=== PATIENT | male | born 1940 | race Caucasian/White ===

== ENCOUNTER 2021-04-10 06:14 | Day surgery (SDC) | payer OTHER ==
[2021-04-05 12:36] LABS: BASOPHILS % (AUTO) 0.4 % (0.0-5.0); EOSINOPHILS % (AUTO) 2.2 % (0.0-8.0); HEMATOCRIT 40.3 % (42-54); LYMPHOCYTES % (AUTO) 26.3 % (21.0-51.0); MEAN CORPUSCULAR HEMOGLOBIN 31.2 pg (27.0-33.0); MEAN CORPUSCULAR HGB CONC 32.3 g/dL (32.0-36.0); MEAN CORPUSCULAR VOLUME 96.6 fL (79-99); MONOCYTES % (AUTO) 9.9 % (3.0-13.0); NEUTROPHILS % (AUTO) 60.8 % (40.0-77.0); PLATELET COUNT (AUTO) 152 K/uL (130-400); RED BLOOD CELL COUNT(AUTO) 4.17 MIL/uL (4.50-6.20); RED CELL DISTRIBUTION WIDTH 13.2 % (11.0-15.5); WHITE BLOOD COUNT (AUTO) 5.1 K/uL (4.8-10.8)
[2021-04-05 12:47] LABS: INR 1.02 (0.85-1.15); PROTHROMBIN TIME 11.1 SEC (9.6-11.6)
[2021-04-05 12:48] LABS: PARTIAL THROMBOPLASTIN TIME 26.2 SEC (26.3-35.5)
[2021-04-05 12:49] LABS: ALBUMIN 3.7 g/dL (3.5-5.0); BILIRUBIN,TOTAL 0.5 mg/dL (0.2-1.0); POTASSIUM 5.2 mmol/L (3.5-5.1); TOTAL PROTEIN, SERUM 7.5 g/dL (6.0-8.3)
[2021-04-09 14:59] VITALS: BP 153/71
[2021-04-10] VITALS (15 sets, daily range): BP systolic 102–142; BP diastolic 53–70
[~2021-04-10] VITALS: Ht 177.8 cm; Wt 85.5 kg
[~2021-04-10 06:14] MED LIST: AEC81 PO; ASCO500C18 PO; CARV12.511 PO; CITA-108 PO; CYAN1TAB44 PO; LISI10TA24 PO; LORA10TA7 PO; MAGN400C PO; MONT-39 PO; MULT-1367 PO; SIMV-43 PO; TAMS-1 PO; ZOLP10TA2 PO
[2021-04-10] MEDS ORDERED: LACTATED RINGERS 1000ML 1,000 ML IV ONE (06:37)
[2021-04-10] MEDS ORDERED: SUCCINYLCHOLINE 200MG/10ML SYR ONE (10:16)
[2021-04-10] MEDS ORDERED: LIDOCAINE PF 100MG/5ML (2%) SYRINGE 5ML ONE (10:16)
[2021-04-10] MEDS ORDERED: ROCURONIUM 10MG/1ML SYR 10 MG/ML ML ONE (10:17)
[2021-04-10] MEDS ORDERED: MIDAZOLAM HCL 1 MG/ML 2ML VIAL ONE (10:17)
[2021-04-10] MEDS ORDERED: FENTANYL CITRATE PF 50 MCG/1 ML 2ML VIAL ONE (10:17)
[2021-04-10] MEDS ORDERED: PROPOFOL 10 MG/ML 20ML VIAL IV ONE (10:17)
[2021-04-10] MEDS ORDERED: EPHEDRINE SULFATE 50 MG/ML AMPULE ONE (10:31)
[2021-04-10] MEDS ORDERED: CEFAZOLIN SODIUM 1 GM VIAL ONE (10:38)
[2021-04-10] MEDS ORDERED: NEOSTIGMINE 5MG/5ML SYR IV ONE (11:04)
[2021-04-10] MEDS ORDERED: GLYCOPYRROLATE 1 MG/5 ML SYRINGE ONE (11:04)
== END 2021-04-10 12:55 | disposition home or self-care (01) ==
LOC: DAH 06:14
PROVIDERS: ATTEND Urology Pediatric Urology
DX: N35.919 Unspecified urethral stricture, male, unspecified site (principal); Z20.822 Contact with and (suspected) exposure to COVID-19; N32.0 Bladder-neck obstruction; N21.0 Calculus in bladder; I10 Essential (primary) hypertension; E78.5 Hyperlipidemia, unspecified; I44.0 Atrioventricular block, first degree; Z87.891 Personal history of nicotine dependence; Z90.89 Acquired absence of other organs; Z85.46 Personal history of malignant neoplasm of prostate; Z92.3 Personal history of irradiation; Z79.01 Long term (current) use of anticoagulants; Z88.1 Allergy status to other antibiotic agents; Z90.49 Acquired absence of other specified parts of digestive tract; Z98.890 Other specified postprocedural states
CPT/HCPCS: 36415 ×2; 52276; 71045; 80053; 84132; 85025; 85610; 85730; 87088; 87635; 93005; A4215; A4221; A4222; A4354; A4358; A4600; A4663; A6260; C1758 ×3; C1769; C9803; J0330; J0690; J2001; J2250; J2704; J2710; J3010; J3490 ×2; J7120

== ENCOUNTER 2022-12-09 12:42 | Inpatient (IN) | payer MEDICARE, OTHER ==
[~2022-12-09] VITALS: Ht 177.8 cm; Wt 85.3 kg
[2022-12-09 13:30] VITALS: BP 147/60; PULSE 56; RESP 22
[2022-12-09] MEDS ORDERED: NITROGLYCERIN 0.4 MG SL TAB SL PRN (13:30)
[2022-12-09] MEDS ORDERED: CLOPIDOGREL 300MG TAB PO ONE (13:30)
[2022-12-09] MEDS ORDERED: PHARMACY COMMUNICATION MISC SCH (13:30)
[2022-12-09 13:48] LABS: MEAN CORPUSCULAR HEMOGLOBIN 31.9 pg (27.0-33.0); MEAN CORPUSCULAR HGB CONC 33.7 g/dL (32.0-36.0); MEAN CORPUSCULAR VOLUME 94.8 fL (79-99); RED BLOOD CELL COUNT(AUTO) 4.01 MIL/uL (4.50-6.20); RED CELL DISTRIBUTION WIDTH 13.2 % (11.0-15.5); WHITE BLOOD COUNT (AUTO) 4.8 K/uL (4.8-10.8)
[2022-12-09] MEDS ORDERED: ASPIRIN 325MG EC TAB PO ONE (14:00)
[2022-12-09 14:24] LABS: INR 0.94 (0.85-1.15); PROTHROMBIN TIME 10.9 SEC (9.6-11.6)
[2022-12-09 14:25] LABS: ALBUMIN 3.4 g/dL (3.5-5.0); BILIRUBIN,TOTAL 0.5 mg/dL (0.2-1.0); MAGNESIUM 1.8 mg/dL (1.80-2.40); PARTIAL THROMBOPLASTIN TIME 25.4 SEC (26.3-35.5); POTASSIUM 3.5 mmol/L (3.5-5.1); T4 (THYROXINE) 5.4 ug/dL (4.7-13.3); THYROID STIMULATING HORMONE 3.43 uIU/mL (0.36-3.74); TOTAL PROTEIN, SERUM 6.9 g/dL (6.0-8.3)
[2022-12-09] MEDS: LISINOPRIL 20 MG TABLET PO SCH (14:30)
[2022-12-09] MEDS ORDERED: LORA5SOL62 PO (14:37)
[2022-12-09] MEDS ORDERED: MULT-1203 PO (14:37)
[2022-12-09] MEDS ORDERED: ASPI-1005 PO (14:37)
[2022-12-09] MEDS ORDERED: SIMV-43 PO (14:37)
[2022-12-09] MEDS ORDERED: LISI20TA24 PO (14:37)
[2022-12-09] MEDS ORDERED: CARV12.580 PO (14:37)
[2022-12-09] MEDS ORDERED: ZOLP10TA2 PO (14:37)
[2022-12-09] MEDS ORDERED: CITA-108 PO (14:37)
[2022-12-09] MEDS ORDERED: MONT-39 PO (14:37)
[2022-12-09 16:00] VITALS: BP 148/77; PULSE 52; RESP 20
[2022-12-09 16:43] VITALS: O2SAT 95
[2022-12-09 19:00] VITALS: BP 145/68; PULSE 56; RESP 20
[2022-12-09 20:00] VITALS: O2SAT 94
[2022-12-09] MEDS: SIMVASTATIN 20 MG TABLET PO SCH (21:00)
[2022-12-09] MEDS: MONTELUKAST SODIUM 10 MG TAB PO SCH (21:00)
[2022-12-10] VITALS (9 sets, daily range): BP systolic 132–151; BP diastolic 59–81; PULSE 52–72; RESP 18–20; O2SAT 96
[2022-12-10 04:40] LABS: BASOPHILS # (AUTO) 0.01 K/uL (0.00-0.20); BASOPHILS % (AUTO) 0.1 % (0.0-5.0); EOSINOPHILS # (AUTO) 0.17 K/uL (0.00-0.70); EOSINOPHILS % (AUTO) 2.4 % (0.0-8.0); HEMATOCRIT 35.1 % (42-54); IMMATURE GRANULOCYTE ABSOLUTE 0.01 K/uL (0-1); LYMPHOCYTES % (AUTO) 28.4 % (21.0-51.0); MEAN CORPUSCULAR HEMOGLOBIN 31.2 pg (27.0-33.0); MEAN CORPUSCULAR HGB CONC 34.2 g/dL (32.0-36.0); MEAN CORPUSCULAR VOLUME 91.2 fL (79-99); MONOCYTES # (AUTO) 0.7 K/uL (0.1-1.0); NEUTROPHILS # (AUTO) 4.1 K/uL (1.8-7.7); PLATELET COUNT (AUTO) 140 K/uL (130-400); RED BLOOD CELL COUNT(AUTO) 3.85 MIL/uL (4.50-6.20); RED CELL DISTRIBUTION WIDTH 13.2 % (11.0-15.5)
[2022-12-10 04:52] LABS: POTASSIUM 3.8 mmol/L (3.5-5.1)
[2022-12-10 06:35] LABS: SARS-CoV-2, RNA, NAAT NEGATIVE SARS CoV-2 (NEGATIVE)
[2022-12-10] MEDS: CLOPIDOGREL 75MG TAB PO SCH (08:36)
[2022-12-10] MEDS: LISINOPRIL 20 MG TABLET PO SCH (08:36)
[2022-12-10] MEDS: ASPIRIN 81 MG EC TAB PO SCH (08:37)
[2022-12-10] MEDS: PANTOPRAZOLE 40 MG TAB DR PO SCH (08:37)
[2022-12-10] MEDS: LORATADINE 10 MG TABLET PO SCH (08:37)
[2022-12-10] MEDS: CITALOPRAM 20 MG TABLET PO SCH (08:37)
[2022-12-10] MEDS ORDERED: [UNRECOGNIZED DRUG - REMARK] PO SCH (09:00)
[2022-12-10] MEDS ORDERED: CITALOPRAM HYDROBROMIDE 40 MG PO SCH (09:00)
[2022-12-10] MEDS: SIMVASTATIN 20 MG TABLET PO SCH (20:47)
[2022-12-10] MEDS: MONTELUKAST SODIUM 10 MG TAB PO SCH (20:47)
[2022-12-10] MEDS: CARVEDILOL 12.5 MG TABLET PO SCH (20:51)
[2022-12-11] VITALS (17 sets, daily range): BP systolic 107–183; BP diastolic 52–88; PULSE 51–62; RESP 18–20; O2SAT 96
[2022-12-11] MEDS: CLOPIDOGREL 75MG TAB PO SCH (09:00)
[2022-12-11] MEDS: LISINOPRIL 20 MG TABLET PO SCH (09:00)
[2022-12-11] MEDS: PANTOPRAZOLE 40 MG TAB DR PO SCH (09:00)
[2022-12-11] MEDS: CITALOPRAM 20 MG TABLET PO SCH (09:00)
[2022-12-11] MEDS: CARVEDILOL 12.5 MG TABLET PO SCH ×2 (09:00→21:00)
[2022-12-11] MEDS: LORATADINE 10 MG TABLET PO SCH (09:00)
[2022-12-11] MEDS: ASPIRIN 81 MG EC TAB PO SCH (09:06)
[2022-12-11] MEDS ORDERED: SODIUM BICARB 50MEQ 50ML VIAL 50 ML ONE (12:04)
[2022-12-11] MEDS ORDERED: BIVALIRUDIN 250 MG/VIAL IV ONE (12:04)
[2022-12-11] MEDS ORDERED: HEPARIN 10,000 UNIT/10ML (1,000 UNIT/ML) VIAL ONE (12:04)
[2022-12-11] MEDS ORDERED: LIDOCAINE HCL 400MG/20ML VIAL ONE (12:04)
[2022-12-11] MEDS ORDERED: NITROGLYCERIN 50MG VIAL ONE (12:05)
[2022-12-11] MEDS ORDERED: FENTANYL CITRATE PF 50 MCG/1 ML 2ML VIAL ONE (12:17)
[2022-12-11] MEDS ORDERED: MIDAZOLAM HCL 1 MG/ML 2ML VIAL ONE (12:19)
[2022-12-11] MEDS ORDERED: IOHEXOL-350 50ML VIAL IV ONE (13:20)
[2022-12-11] MEDS ORDERED: ISOVUE-370 50ML VIAL IV ONE (13:58)
[2022-12-11] MEDS ORDERED: IOPAMIDOL-370 100 ML VIAL IV ONE (13:58)
[2022-12-11] MEDS: 0.9%NACL 1000ML 1,000 ML IV SCH ×2 (14:00→20:40)
[2022-12-11] MEDS: MONTELUKAST SODIUM 10 MG TAB PO SCH (22:23)
[2022-12-11] MEDS: SIMVASTATIN 20 MG TABLET PO SCH (22:23)
[2022-12-12] VITALS (7 sets, daily range): BP systolic 150–169; BP diastolic 77–86; PULSE 56–65; RESP 16–18; O2SAT 97
[2022-12-12] MEDS: 0.9%NACL 1000ML 1,000 ML IV SCH ×2 (01:16→10:00)
[2022-12-12 04:09] LABS: POTASSIUM 3.7 mmol/L (3.5-5.1)
[2022-12-12] MEDS: CARVEDILOL 12.5 MG TABLET PO SCH ×2 (09:00→20:20)
[2022-12-12] MEDS: CITALOPRAM 20 MG TABLET PO SCH (11:22)
[2022-12-12] MEDS: LORATADINE 10 MG TABLET PO SCH (11:22)
[2022-12-12] MEDS: PANTOPRAZOLE 40 MG TAB DR PO SCH (11:22)
[2022-12-12] MEDS: CLOPIDOGREL 75MG TAB PO SCH (11:23)
[2022-12-12] MEDS: LISINOPRIL 20 MG TABLET PO SCH (11:23)
[2022-12-12] MEDS: ASPIRIN 81 MG EC TAB PO SCH (11:23)
[2022-12-12] MEDS: SIMVASTATIN 20 MG TABLET PO SCH (20:20)
[2022-12-12] MEDS: MONTELUKAST SODIUM 10 MG TAB PO SCH (20:20)
[2022-12-13] VITALS (9 sets, daily range): BP systolic 110–161; BP diastolic 58–84; PULSE 54–66; RESP 16–20; O2SAT 97–98
[2022-12-13] MEDS: ASPIRIN 81 MG EC TAB PO SCH (08:03)
[2022-12-13] MEDS: LISINOPRIL 20 MG TABLET PO SCH (08:03)
[2022-12-13] MEDS: CITALOPRAM 20 MG TABLET PO SCH (08:04)
[2022-12-13] MEDS: PANTOPRAZOLE 40 MG TAB DR PO SCH (08:05)
[2022-12-13] MEDS: CLOPIDOGREL 75MG TAB PO SCH (08:05)
[2022-12-13] MEDS: LORATADINE 10 MG TABLET PO SCH (08:05)
[2022-12-13] MEDS: CARVEDILOL 12.5 MG TABLET PO SCH (08:06)
[2022-12-13] MEDS: MONTELUKAST SODIUM 10 MG TAB PO SCH (20:51)
[2022-12-13] MEDS: SIMVASTATIN 20 MG TABLET PO SCH (20:51)
[2022-12-14] VITALS: BP 134/71; PULSE 52; RESP 18
[2022-12-14] MEDS: ASPIRIN 81 MG EC TAB PO SCH (09:00)
[2022-12-14] MEDS: PANTOPRAZOLE 40 MG TAB DR PO SCH (09:00)
[2022-12-14] MEDS: LORATADINE 10 MG TABLET PO SCH (09:00)
[2022-12-14] MEDS: CITALOPRAM 20 MG TABLET PO SCH (09:00)
[2022-12-14] MEDS: LISINOPRIL 20 MG TABLET PO SCH (09:00)
[2022-12-14] MEDS: ENOXAPARIN SODIUM 40 MG/0.4 ML SYRINGE SQ SCH (09:00)
[2022-12-14] MEDS: CLOPIDOGREL 75MG TAB PO SCH (09:00)
[2022-12-14 20:00] VITALS: O2SAT 97
[2022-12-14] MEDS: MONTELUKAST SODIUM 10 MG TAB PO SCH (21:00)
[2022-12-14] MEDS: SIMVASTATIN 20 MG TABLET PO SCH (21:00)
[2022-12-14] MEDS: CARVEDILOL 12.5 MG TABLET PO SCH (21:00)
[2022-12-15] VITALS (7 sets, daily range): BP systolic 125–150; BP diastolic 65–83; PULSE 50–63; RESP 16–18; O2SAT 97–98
[2022-12-15 00:35] LABS: PHOSPHORUS 3.5 mg/dL (2.5-4.9); POTASSIUM 3.8 mmol/L (3.5-5.1)
[2022-12-15 03:54] LABS: BASOPHILS # (AUTO) 0.02 K/uL (0.00-0.20); BASOPHILS % (AUTO) 0.4 % (0.0-5.0); EOSINOPHILS # (AUTO) 0.17 K/uL (0.00-0.70); EOSINOPHILS % (AUTO) 3.1 % (0.0-8.0); HEMATOCRIT 35.4 % (42-54); IMMATURE GRANULOCYTE ABSOLUTE 0.01 K/uL (0-1); LYMPHOCYTES # (AUTO) 2.1 K/uL (1.0-4.8); LYMPHOCYTES % (AUTO) 38.4 % (21.0-51.0); MEAN CORPUSCULAR HEMOGLOBIN 31.8 pg (27.0-33.0); MEAN CORPUSCULAR HGB CONC 34.2 g/dL (32.0-36.0); MEAN CORPUSCULAR VOLUME 93.2 fL (79-99); MONOCYTES # (AUTO) 0.6 K/uL (0.1-1.0); MONOCYTES % (AUTO) 10.2 % (3.0-13.0); NEUTROPHILS # (AUTO) 2.6 K/uL (1.8-7.7); NEUTROPHILS % (AUTO) 47.7 % (40.0-77.0); PLATELET COUNT (AUTO) 149 K/uL (130-400); RED CELL DISTRIBUTION WIDTH 13.4 % (11.0-15.5); WHITE BLOOD COUNT (AUTO) 5.5 K/uL (4.8-10.8)
[2022-12-15 04:03] LABS: POTASSIUM 3.7 mmol/L (3.5-5.1)
[2022-12-15 04:23] LABS: BASOPHILS # (AUTO) 0.02 K/uL (0.00-0.20); BASOPHILS % (AUTO) 0.4 % (0.0-5.0); EOSINOPHILS # (AUTO) 0.18 K/uL (0.00-0.70); EOSINOPHILS % (AUTO) 3.4 % (0.0-8.0); HEMATOCRIT 36.2 % (42-54); IMMATURE GRANULOCYTE ABSOLUTE 0.01 K/uL (0-1); LYMPHOCYTES % (AUTO) 37.6 % (21.0-51.0); MEAN CORPUSCULAR HEMOGLOBIN 31.4 pg (27.0-33.0); MEAN CORPUSCULAR HGB CONC 33.7 g/dL (32.0-36.0); MEAN CORPUSCULAR VOLUME 93.3 fL (79-99); MONOCYTES # (AUTO) 0.7 K/uL (0.1-1.0); MONOCYTES % (AUTO) 12.1 % (3.0-13.0); NEUTROPHILS # (AUTO) 2.5 K/uL (1.8-7.7); NEUTROPHILS % (AUTO) 46.3 % (40.0-77.0); PLATELET COUNT (AUTO) 138 K/uL (130-400); RED BLOOD CELL COUNT(AUTO) 3.88 MIL/uL (4.50-6.20); RED CELL DISTRIBUTION WIDTH 13.3 % (11.0-15.5); WHITE BLOOD COUNT (AUTO) 5.4 K/uL (4.8-10.8)
[2022-12-15] MEDS: ASPIRIN 81 MG EC TAB PO SCH (08:58)
[2022-12-15] MEDS: PANTOPRAZOLE 40 MG TAB DR PO SCH (08:58)
[2022-12-15] MEDS: ENOXAPARIN SODIUM 40 MG/0.4 ML SYRINGE SQ SCH (08:58)
[2022-12-15] MEDS: CITALOPRAM 20 MG TABLET PO SCH (08:58)
[2022-12-15] MEDS: CARVEDILOL 12.5 MG TABLET PO SCH ×2 (08:59→20:09)
[2022-12-15] MEDS: LORATADINE 10 MG TABLET PO SCH (08:59)
[2022-12-15] MEDS: LISINOPRIL 20 MG TABLET PO SCH (08:59)
[2022-12-15] MEDS: CLOPIDOGREL 75MG TAB PO SCH (08:59)
[2022-12-15] MEDS: MONTELUKAST SODIUM 10 MG TAB PO SCH (20:08)
[2022-12-15] MEDS: SIMVASTATIN 20 MG TABLET PO SCH (20:09)
[2022-12-16] VITALS (43 sets, daily range): BP systolic 93–172; BP diastolic 29–85; PULSE 50–88; RESP 10–24; O2SAT 93–97
[2022-12-16 04:06] LABS: BASOPHILS # (AUTO) 0.02 K/uL (0.00-0.20); BASOPHILS % (AUTO) 0.3 % (0.0-5.0); EOSINOPHILS # (AUTO) 0.22 K/uL (0.00-0.70); EOSINOPHILS % (AUTO) 3.7 % (0.0-8.0); HEMATOCRIT 34.2 % (42-54); IMMATURE GRANULOCYTE ABSOLUTE 0.02 K/uL (0-1); LYMPHOCYTES # (AUTO) 1.9 K/uL (1.0-4.8); LYMPHOCYTES % (AUTO) 30.7 % (21.0-51.0); MEAN CORPUSCULAR HEMOGLOBIN 31.7 pg (27.0-33.0); MEAN CORPUSCULAR HGB CONC 34.2 g/dL (32.0-36.0); MEAN CORPUSCULAR VOLUME 92.7 fL (79-99); MONOCYTES # (AUTO) 0.7 K/uL (0.1-1.0); MONOCYTES % (AUTO) 12.3 % (3.0-13.0); NEUTROPHILS # (AUTO) 3.2 K/uL (1.8-7.7); NEUTROPHILS % (AUTO) 52.7 % (40.0-77.0); PLATELET COUNT (AUTO) 152 K/uL (130-400); RED BLOOD CELL COUNT(AUTO) 3.69 MIL/uL (4.50-6.20); RED CELL DISTRIBUTION WIDTH 13.2 % (11.0-15.5)
[2022-12-16 04:34] LABS: ALBUMIN 3.1 g/dL (3.5-5.0); BILIRUBIN,TOTAL 0.5 mg/dL (0.2-1.0); CREATININE 1.2 mg/dL (0.5-1.5); MAGNESIUM 1.9 mg/dL (1.80-2.40); POTASSIUM 3.9 mmol/L (3.5-5.1); TOTAL PROTEIN, SERUM 6.7 g/dL (6.0-8.3)
[2022-12-16] MEDS ORDERED: MAGNESIUM 2GM PREMIX 50ML 50 ML IV PRN (05:30)
[2022-12-16] MEDS: CLOPIDOGREL 75MG TAB PO SCH (09:00)
[2022-12-16] MEDS: ENOXAPARIN SODIUM 40 MG/0.4 ML SYRINGE SQ SCH ×2 (09:00→16:08)
[2022-12-16] MEDS ORDERED: LIDOCAINE HCL 400MG/20ML VIAL ONE (11:17)
[2022-12-16] MEDS ORDERED: NITROGLYCERIN 50MG VIAL ONE (11:17)
[2022-12-16] MEDS ORDERED: BIVALIRUDIN 250 MG/VIAL IV ONE ×2 (11:17→12:36)
[2022-12-16] MEDS ORDERED: HEPARIN 10,000 UNIT/10ML (1,000 UNIT/ML) VIAL ONE (11:18)
[2022-12-16] MEDS ORDERED: SODIUM BICARB 50MEQ 50ML VIAL 50 ML ONE (11:18)
[2022-12-16] MEDS ORDERED: FENTANYL CITRATE PF 50 MCG/1 ML 2ML VIAL ONE (11:47)
[2022-12-16] MEDS ORDERED: MIDAZOLAM HCL 1 MG/ML 2ML VIAL ONE (11:47)
[2022-12-16] MEDS ORDERED: NITROGLYCERIN 50MG/D5W 250ML 1 BOT ONE (12:49)
[2022-12-16] MEDS ORDERED: LABETALOL 20MG SYG IV ONE (13:00)
[2022-12-16] MEDS ORDERED: ATROPINE 1MG SYG IVP ONE (13:04)
[2022-12-16] MEDS ORDERED: CLOPIDOGREL 300MG TAB ONE (13:29)
[2022-12-16] MEDS ORDERED: 0.9%NACL 1000ML 1,000 ML IV SCH (14:00)
[2022-12-16] MEDS ORDERED: NITROGLYCERIN 50MG/D5W 250ML 1 BOT IV PRN (14:00)
[2022-12-16] MEDS ORDERED: ISOVUE-300 100 ML VIAL IV ONE (14:57)
[2022-12-16] MEDS: CARVEDILOL 12.5 MG TABLET PO SCH ×2 (16:00→21:00)
[2022-12-16] MEDS: CITALOPRAM 20 MG TABLET PO SCH (16:06)
[2022-12-16] MEDS: LISINOPRIL 20 MG TABLET PO SCH (16:07)
[2022-12-16] MEDS: PANTOPRAZOLE 40 MG TAB DR PO SCH (16:07)
[2022-12-16] MEDS: LORATADINE 10 MG TABLET PO SCH (16:07)
[2022-12-16] MEDS: MONTELUKAST SODIUM 10 MG TAB PO SCH (20:44)
[2022-12-16] MEDS ORDERED: ATORVASTATIN 40 MG TABLET PO SCH (21:00)
[2022-12-17] VITALS (44 sets, daily range): BP systolic 96–158; BP diastolic 41–96; PULSE 57–90; RESP 15–41; O2SAT 94–98
[2022-12-17 04:17] LABS: HEMATOCRIT 33.9 % (42-54); MEAN CORPUSCULAR HEMOGLOBIN 31.6 pg (27.0-33.0); MEAN CORPUSCULAR HGB CONC 33.9 g/dL (32.0-36.0); MEAN CORPUSCULAR VOLUME 93.1 fL (79-99); RED BLOOD CELL COUNT(AUTO) 3.64 MIL/uL (4.50-6.20); RED CELL DISTRIBUTION WIDTH 13.2 % (11.0-15.5); WHITE BLOOD COUNT (AUTO) 5.5 K/uL (4.8-10.8)
[2022-12-17 04:55] LABS: BILIRUBIN,TOTAL 0.5 mg/dL (0.2-1.0); CREATININE 0.9 mg/dL (0.5-1.5); POTASSIUM 3.6 mmol/L (3.5-5.1); TOTAL PROTEIN, SERUM 6.4 g/dL (6.0-8.3)
[2022-12-17] MEDS: ENOXAPARIN SODIUM 40 MG/0.4 ML SYRINGE SQ SCH (08:02)
[2022-12-17] MEDS: CITALOPRAM 20 MG TABLET PO SCH (08:03)
[2022-12-17] MEDS: LORATADINE 10 MG TABLET PO SCH (08:03)
[2022-12-17] MEDS: PANTOPRAZOLE 40 MG TAB DR PO SCH (08:03)
[2022-12-17] MEDS: CARVEDILOL 12.5 MG TABLET PO SCH (08:03)
[2022-12-17] MEDS: CLOPIDOGREL 75MG TAB PO SCH (08:04)
[2022-12-17] MEDS: LISINOPRIL 20 MG TABLET PO SCH (08:04)
[2022-12-17] MEDS ORDERED: CLOPIDOGREL 75MG TAB PO SCH ×2 (09:00)
[2022-12-17] MEDS ORDERED: ASPIRIN 81MG CHEW TAB PO SCH (09:00)
[2022-12-17] MEDS ORDERED: LISI20TA24 PO (13:38)
[2022-12-17] MEDS ORDERED: ATOR40TA69 PO (13:38)
[2022-12-17] MEDS ORDERED: CLOP-31 PO (13:38)
[2022-12-17] MEDS ORDERED: Nitroglycerin 0.4MG Sl Tab SL (13:38)
== END 2022-12-17 14:48 | disposition home or self-care (01) | DRG 246 ==
LOC: EDH 12:42 → 2DH 13:14 → 2CV 12-16 14:36 → 2BH 12-16 15:32
PROVIDERS: ADMIT Internal Medicine; ATTEND Internal Medicine
PROC: 4A023N7 Measurement of Cardiac Sampling and Pressure, Left Heart, Percutaneous Approach (ICD-10-PCS; 2022-12-11)
PROC: B2111ZZ Fluoroscopy of Multiple Coronary Arteries using Low Osmolar Contrast (ICD-10-PCS; 2022-12-11)
PROC: B2151ZZ Fluoroscopy of Left Heart using Low Osmolar Contrast (ICD-10-PCS; 2022-12-11)
PROC: 027137Z Dilation of Coronary Artery, Two Arteries with Four or More Drug-eluting Intraluminal Devices, Percutaneous Approach (ICD-10-PCS; principal; 2022-12-16)
PROC: 02F13ZZ Fragmentation in Coronary Artery, Two Arteries, Percutaneous Approach (ICD-10-PCS; 2022-12-16)
PROC: 02703ZZ Dilation of Coronary Artery, One Artery, Percutaneous Approach (ICD-10-PCS; 2022-12-16)
PROC: B241ZZ3 Ultrasonography of Multiple Coronary Arteries, Intravascular (ICD-10-PCS; 2022-12-16)
DX: I25.110 Atherosclerotic heart disease of native coronary artery with unstable angina pectoris (principal); I24.9 Acute ischemic heart disease, unspecified; I10 Essential (primary) hypertension; Z20.822 Contact with and (suspected) exposure to COVID-19; E78.5 Hyperlipidemia, unspecified; Z96.653 Presence of artificial knee joint, bilateral; Z85.038 Personal history of other malignant neoplasm of large intestine; Z85.46 Personal history of malignant neoplasm of prostate; Z82.3 Family history of stroke; Z87.891 Personal history of nicotine dependence; Z90.79 Acquired absence of other genital organ(s); Z98.61 Coronary angioplasty status
CPT/HCPCS: 0715T; 36415; 71045; 80048; 80053; 80061; 83036; 83735; 83880; 84100; 84436; 84439; 84443; 84484; 85025; 85027; 85610; 85730; 87635; 92978; 92979; 93005; 93306; 93356; 93458; 93925; 94760; 99156; 99157; C1760; C1769; C1887; C1894; C9600; C9601; G0378; J0461; J0583; J1644; J1650; J2250; J3010; J3475; J3490; Q9967; C1753; C1761; C1874

== ENCOUNTER → 2023-10-07 | Outpatient (CLI) | payer OTHER ==
[~2023-10-07] VITALS: Ht 175.3 cm; Wt 90.3 kg
[~2023-10-07] MED LIST changes: -AEC81 PO; +ASPI-1005 PO; +ATOR-2 PO; +ATOR40TA69 PO; +CARV12.580 PO; +CETI-89 PO; +CLOP-31 PO; +FLUT15.845 NS; +FLUT1BLS3 IH; -LISI10TA24 PO; +LISI20TA24 PO; -LORA10TA7 PO; +LORA5SOL62 PO; +LOSA25TA41 PO; -MAGN400C PO; +MECL-302 PO; +MULT-1203 PO; -MULT-1367 PO; +Nitroglycerin 0.4MG Sl Tab SL; -SIMV-43 PO; -TAMS-1 PO
[2023-10-07 10:31] LABS: BASOPHILS # (AUTO) 0.02 K/uL (0.00-0.20); BASOPHILS % (AUTO) 0.4 % (0.0-5.0); EOSINOPHILS # (AUTO) 0.13 K/uL (0.00-0.70); EOSINOPHILS % (AUTO) 2.4 % (0.0-8.0); HEMATOCRIT 39.2 % (42-54); IMMATURE GRANULOCYTE ABSOLUTE 0.02 K/uL (0-1); LYMPHOCYTES % (AUTO) 19.5 % (21.0-51.0); MEAN CORPUSCULAR HEMOGLOBIN 32.7 pg (27.0-33.0); MEAN CORPUSCULAR HGB CONC 33.2 g/dL (32.0-36.0); MEAN CORPUSCULAR VOLUME 98.7 fL (79-99); MONOCYTES # (AUTO) 0.6 K/uL (0.1-1.0); MONOCYTES % (AUTO) 10.3 % (3.0-13.0); NEUTROPHILS # (AUTO) 3.6 K/uL (1.8-7.7); PLATELET COUNT (AUTO) 155 K/uL (130-400); RED BLOOD CELL COUNT(AUTO) 3.97 MIL/uL (4.50-6.20); RED CELL DISTRIBUTION WIDTH 13.6 % (11.0-15.5); WHITE BLOOD COUNT (AUTO) 5.3 K/uL (4.8-10.8)
[2023-10-07 10:39] LABS: HEMOGLOBIN A1C 6.2 % (4.0-6.0)
[2023-10-07 10:51] LABS: B-TYPE NATRIURETIC PEPTIDE 144 pg/mL (0-100)
[2023-10-07 10:54] LABS: ALBUMIN 3.4 g/dL (3.5-5.0); BILIRUBIN,TOTAL 0.5 mg/dL (0.2-1.0); TOTAL PROTEIN, SERUM 6.9 g/dL (6.0-8.3)
[2023-10-07 11:08] LABS: INR 0.94 (0.85-1.15); PROTHROMBIN TIME 11.1 SEC (9.6-11.6)
[2023-10-07 11:09] LABS: PARTIAL THROMBOPLASTIN TIME 25.9 SEC (26.3-35.5)
[2023-10-07 11:11] VITALS: BP 108/60; PULSE 63; RESP 18
[2023-10-07 12:01] LABS: ABG BASE EXCESS 0.2 mmol/L (-2.0-3.0); ABG HCO3 23.9 mmol/L (21.0-28.0); ABG OXYGEN SATURATION 93.6 % (95.0-99.0); ABG PCO2 36 mmHg (35-48); ABG PH 7.436 (7.35-7.450); PO2, ARTERIAL BG 65.5 mmHg (83.0-108.0); VENT MODE, BG RA (ROOM AIR)
== END | disposition home or self-care (01) ==
LOC: EDSTATUS 10:00 → DAH 10:00
PROVIDERS: ATTEND Thoracic Surgery (Cardiothoracic Vascular Surgery)
DX: Z01.818 Encounter for other preprocedural examination (principal); I65.23 Occlusion and stenosis of bilateral carotid arteries; I25.10 Atherosclerotic heart disease of native coronary artery without angina pectoris; I71.21 Aneurysm of the ascending aorta, without rupture; Z79.899 Other long term (current) drug therapy; J44.9 Chronic obstructive pulmonary disease, unspecified
CPT/HCPCS: 93880; 71045; 80061; 83036; 80053; 82803; 83880; 85025; 85610; 85730; 86850; 86900; 86901; 36415; 93005; 36600; 94010; 87641; A6260